=== PATIENT | female | born 1960 | race Caucasian/White ===

== ENCOUNTER 2018-07-12 09:49 | Inpatient (IN) ==
[2018-07-12] MEDS ORDERED: ceFAZolin 2 GM Premix Inj 2 GM/50 ML PIGGYBACK IV.SIG ONE (10:58)
[2018-07-12] MEDS ORDERED: Chlorhexidine Gluconate 2% 1 Pack (2 Cloths) TOPICAL ONE (11:08)
[2018-07-12] MEDS ORDERED: Metoprolol Tartrate 25 MG Tablet PO ONE (11:08)
[2018-07-12] MEDS ORDERED: Chlorhexidine 4% Topical 120 APPLIC/120 ML Bottle TOPICAL SCH (11:15)
[2018-07-12] MEDS ORDERED: Sodium Chlor 0.9% Inj 73.07 ML, Ropivacaine 0.5% PF Inj 24.63 ML, Ketorolac Inj 30 MG, ... P-ARTICULR SCH ×5 (11:15)
[2018-07-12] MEDS ORDERED: Bupivacaine Liposomal PF 1.3% Inj 20 ML Vial ONE (11:42)
[2018-07-12] MEDS ORDERED: ceFAZolin 2 GM Premix Inj 2 GM/50 ML PIGGYBACK IV.SIG SCH (12:00)
[2018-07-12] MEDS ORDERED: Sodium Chlor 0.9% Inj 500 ML IV.SIG SCH (12:00)
[2018-07-12] MEDS ORDERED: Vancomycin Inj 1,000 MG in Sodium Chlor 0.9% Inj 250 ML IV.SIG SCH (12:00)
[2018-07-12] MEDS ORDERED: Lidocaine PF 1% Inj 5 ML Syringe OTHER ONE (13:00)
[2018-07-12] MEDS ORDERED: Bisacodyl 10 MG Supp RECTAL PRN (15:04)
[2018-07-12] MEDS ORDERED: Morphine Inj 4 MG/ML Vial IV.PUSH PRN (15:04)
[2018-07-12] MEDS ORDERED: Zolpidem Tartrate 5 MG Tablet PO PRN (15:04)
[2018-07-12] MEDS ORDERED: Post-op Orders (for Pharmacy) OTHER STA (15:04)
[2018-07-12] MEDS ORDERED: *morphine SULFATE 4 MG/ML PERIprocedure ONLY ONE (15:11)
[2018-07-12] MEDS ORDERED: fentaNYL Citrate Inj 100 MCG/2 ML Ampul ONE (15:11)
--- NOTE | 2018-07-12 15:14 | P.DCO ---
- Physical Therapy Physical Therapy: Gait training, Safety evaluation Knee: Total knee, Protocol: Right, Full weight bearing Right Lower Extremity Weight Bearing: Weight bearing as tolerated Left Lower Extremity Weight Bearing: Weight bearing as tolerated - Nursing RN: 3 days/week x 2 weeks Nursing: Dressing changes (clean incision with alcohol and apply dry, sterile dressing ), Other (aspirin 81 mg bid x 4 weeks dvt prop) - Certification Need for Home Health services: I have seen patient Renetta Cifuentes on 07/12/18. My clinical findings support the need for the requested home health care services because: Need for Home Health Services: Deconditioned with increased weakness, High risk of falls Homebound Certification: I certify that my clinical findings support that this patient is homebound because: Homebound Certification: Post-op weakness
--- NOTE | 2018-07-12 16:27 | XR ---
EXAM DATE: 07/12/2018 3:02 PM EDT AGE/SEX: 58 years / Female INDICATIONS: Post op right knee surgery. CLINICAL DATA: This is the patient's initial encounter. Patient reports that signs and symptoms have been present for 1 day and indicates a pain score of 4/10. MEDICAL/SURGICAL HISTORY: None. None. COMPARISON: No prior exams available for comparison. FINDINGS: Two views of the knee reveal a total knee prosthesis in good position. No fracture or dislocation is observed. Soft tissues are unremarkable. No joint effusion is seen. Surgical drain and surgical stapl es noted. CONCLUSION: Total knee prosthesis in good position. Electronically signed by: Harrison Moss MD 07/12/2018 4:25 PM EDT
--- NOTE | 2018-07-12 17:33 | MP ---
cc: Jack Govea MD DATE OF OPERATION: 07/12/2018 PREOPERATIVE DIAGNOSIS: Right knee severe tricompartment osteoarthritis. POSTOPERATIVE DIAGNOSIS: Right knee severe tricompartment osteoarthritis. PROCEDURE PERFORMED: Right total knee arthroplasty - cemented [employer] Vanguard. SURGEON: Jack Govea MD SECRETARY TO BOARD OF COMMISSIONERS: Kiki Brooks PA-C. ANESTHESIA: General anesthesia, regional adductor canal saphenous nerve block, and intraarticular block TOURNIQUET TIME: 53 minutes at 250 mmHg. COMPLICATIONS: None. SPECIMEN: None. DRAINS: Two. DESCRIPTION OF PROCEDURE: My carpenter's assistant, Kiki Brooks PA-C, was present for the entire surgical case. She was medically necessary for the entire case because of the complexity of case and to facilitate the performance of the procedure. The JAVA WE[employer] USER INTERFACE DEVELOPER at the back table was not of the skill set for this case to manipulate instruments, e.g., multiple different types of soft tissue retractors, trial implants and permanent implants. The patient was brought into the operating room and had satisfactory anesthesia by the department of anesthesia. Right lower extremity was prepped and draped in the usual sterile manner. The extremity was exsanguinated by elevation, tourniquet was inflated to 250 mmHg. A small anterior skin incision was made. A paramedian capsulotomy was performed. The patient was found to have severe osteoarthritis involving all three compartments. The patient was also found to have a moderate degree of synovitis involving the knee itself. The remaining portion of medial and lateral meniscus were removed. The anterior cruciate ligament was removed. The posterior cruciate ligament was preserved. Prepatellar fat pad was surgically excised. Using the [employer] Vanguard total knee arthroplasty system IM guide was used for the distal femur. The IM guide was used. With a 5 degree valgus cut to accept a 60 mm femoral component. Extramedullary guide was used for the tibia and this was used to a 67 mm tibial component. Trial reduction was made with a 14 insert, found to be excellent balance with flexion and extension. Undersurface of the patella was removed to accept a 28 mm patellar prosthesis. All trial components were removed. Preparation for cementing was made. The knee was injected with 100 mL of local anesthesia provided by the Department of Pharmacy. The knee was irrigated with 4000 mL of sterile saline antibiotic solution. First, 2 packages of high viscosity bone cement by [employer] was used. First, the tibial component was cemented, which was a 67 mm tibial component, followed by the femoral component, which was a 60 mm right femoral component. A trial 14 mm insert was used. The undersurface of the patella was resurfaced using a 3-pronged 28 mm patellar prosthesis. All excess bone cement was removed and the bone cement was allowed to harden for 12 minutes. The trial polyethylene plastic was removed. A 14 x 67 "lipped" polyethylene tibial bearing was then assembled onto the tibial tray and was appropriately locked with a locking mechanism. Tourniquet was deflated. All bleeders were coagulated. Wound again was irrigated with copious amounts of sterile saline antibiotic solution. The wound itself was dry. It was closed over two 1/8 inch Hemovac drains. The capsule and extensor mechanisms were repaired using multiple interrupted #2 Ti-Cron suture, subcuticular layers with 0 Vicryl and 2-0 Vicryl, and skin was approximated with skin jay. Sterile dressings were applied. The patient tolerated the procedure well and was taken to the recovery room in stable and satisfactory condition. MD MONICA Padilla/samreen , 02:54 PM , 03:06 PM BONG
[2018-07-12] MEDS: Senna/Docusate Sodium 8.6/50 MG Tablet PO SCH (21:09)
[2018-07-13 04:49] VITALS: O2SAT 96
[2018-07-13 06:35] LABS: Hematocrit 32.3 % (35.0-46.0)
--- NOTE | 2018-07-13 07:08 | P.PNOP ---
Subjective Interval history: POD#1 R TKR Explained operative findings;answered multiple answered questions Seen with No SOB;no chest pain Physical Exam Vital signs: Vital Signs 07/12/18 10:39 07/12/18 10:53 07/12/18 15:03 Temperature 98.7 F 97.6 F Pulse Rate 78 80 116 H Respiratory Rate 18 16 Blood Pressure 147/94 H 134/75 Pulse Oximetry 100 100 100 07/12/18 15:15 07/12/18 15:30 07/12/18 15:42 Temperature 97.6 F Pulse Rate 98 H 94 H 116 H Respiratory Rate 16 16 16 Blood Pressure 137/80 116/58 L 134/75 Pulse Oximetry 98 98 100 07/12/18 15:45 07/12/18 16:00 07/12/18 16:46 Temperature 97.4 F L Pulse Rate 82 74 73 Respiratory Rate 16 16 16 Blood Pressure 109/57 L 116/58 L 107/57 L Pulse Oximetry 96 96 92 L 07/12/18 20:00 07/13/18 00:13 07/13/18 04:00 Temperature 98.1 F 97.6 F 98.2 F Pulse Rate 61 66 Respiratory Rate 16 18 Blood Pressure 109/59 L 93/51 L 102/55 L Pulse Oximetry 96 94 L 96 Intake & Output 07/12/18 07/12/18 07/13/18 06:59 18:59 06:59 Intake Total 1300 / 1300 200 / 200 Output Total 50 / 50 240 / 240 Balance 1250 / 1250 -40 / -40 Weight 55.338 kg Intake: IV 1100 / 1100 200 / 200 LR 1000 mL Inj 1,000 ML @ 30 800 / 800 mls/hr IV.SIG .Q24H [facility] Rx#: [id number] Vancomycin Inj 1,000 MG In NS 250 / 250 Inj 250 ML @ 250 mls/hr IV.SIG CLIENT SERVER PROGRAMMER [facility] Rx#:[id number] Ancef 2 GM Premix Inj 2 gm In 50 / 50 50 ml @ 0 mls/hr IV.SIG .STK- [facility] Rx#:[id number] Ancef Inj 1,000 MG In NS Inj 200 / 200 100 ML @ 200 mls/hr IV.SIG Q6H [facility] Rx#:[id number] Anesthesia Amount 200 / 200 Output: Estimated Blood Loss 50 / 50 Wound Drainage 240 / 240 # 1 Right Knee Hemovac 240 / 240 Other: Date of Last Bowel Movement 07/12/18 Weight On Admission 55.7 kg Narrative: N/V intact No calf tenderness;negative neelima's sign Results - Labs CBC & Chem 7: 07/13/18 04:23 Laboratory Results - last 24 hr 07/12/18 07/13/18 10:25 04:23 Hgb 11.0 L Hct 32.3 L Blood Type A Positive Antibody Screen Negative MTS Gel Crossmatch See Detail - Imaging Impressions Knee X-Ray 07/12/18 15:02 CONCLUSION: Total knee prosthesis in good position. Assessment and Plan - Problem List (1) Osteoarthritis of right knee Code(s): M17.11 - Unilateral primary osteoarthritis, right knee Status: Acute - Attending Attestation Attending Attestation: Ortho stable PT/Rehab Aspirin 81mg BID TEDS x 4 weeks for DVT/PE prophylaxsis Discharge home today HHC PT/RN
[2018-07-13 08:53] VITALS: BP 100/51; PULSE 69; RESP 16; TEMP 98
[2018-07-13] MEDS: Senna/Docusate Sodium 8.6/50 MG Tablet PO SCH (09:29)
== END 2018-07-13 14:16 | disposition home health service (06) ==
LOC: HSDI 09:49 → N06 16:22
PROVIDERS: ADMIT Orthopaedic Surgery Orthopaedic Surgery of the Spine; ATTEND Orthopaedic Surgery Orthopaedic Surgery of the Spine